=== PATIENT | male | born 1940 | race Caucasian/White ===

== ENCOUNTER 2022-09-03 15:12 | Outpatient (AMB) | payer MEDICARE, SELFPAY ==
--- NOTE | 2022-09-03 17:12 | HO.SPINEOV ---
Intake Intake Visit Reasons: follow up Assessment & Plan Assessment & Plan (1) Lumbar stenosis with neurogenic claudication: Code(s): M48.062 - Spinal stenosis, lumbar region with neurogenic claudication Plan Dear colleague, On 09/03/2022 I saw your patient Georgi Desouza the chief complaint of bilateral leg pain and left leg weakness. This patient is familiar to me. 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 He recovered well from his last surgery and was able to ambulate without assistance. 2-3 months ago he noticed a decline in his neurological function. Specifically, he complains of pain down both legs and dragging of his left leg. He has to ambulate with a walker otherwise he might fall due to his leg giving out. He has fallen several times. He denies numbness. He recently had a pacemaker implanted and he is on Xarelto. On exam: There is a grade 3/5 weakness of the iliopsoas on the left side. Normal reflexes. No pathological reflexes. Sensory exam is intact. He ambulates with a walker We reviewed an MRI of the lumbar spine also [facility] of 08/12/2022 which shows severe L3-4 central stenosis caused by a large left-sided bone spur that deforms and compresses the thecal sac and nerve root. Clinically there are no signs of myelopathy. I think the weakness and pain down his legs is related to the severe L3-4 stenosis. I offered him a left L3-4 decompression in day surgery. He will obtain cardiology clearance. He needs to stop his Xarelto 3 days prior to surgery. He will also need clearance by our anesthesia department. This surgery scheduled for November 04. The daughter is also going to bring old MRIs for me to compare to see if the abnormality to can be seen on previous MRIs. I spent 45 minutes in this consult for preparation, review of imaging and discussing plan of care. Yobani Toussaint MD, PhD Spine Fellowship Trained Neurosurgeon Director, [facility] Coding Level of Care Code Est Pt Level 5 (05096) Diagnoses Lumbar stenosis with neurogenic claudication M48.062
== END 2022-09-05 14:54 | disposition home or self-care (01) ==
PROVIDERS: PCP Internal Medicine; Visit Provider Neurological Surgery
DX: M48.062 Spinal stenosis, lumbar region with neurogenic claudication (principal)
CPT/HCPCS: 99215

== ENCOUNTER → 2022-09-03 15:12 | Outpatient (BNVA) | payer MEDICARE, SELFPAY | PROVIDERS: PCP Internal Medicine; Visit Provider Neurological Surgery | DX: M48.062 Spinal stenosis, lumbar region with neurogenic claudication (principal) | CPT/HCPCS: 99212 ==

== ENCOUNTER 2022-11-18 08:14 | Day surgery (SDC) | payer MEDICARE, SELFPAY ==
[2022-11-03 12:50] VITALS: BMI 27.6
--- NOTE | 2022-11-17 10:06 | P.CONAN_ITS ---
Documented by User: Claire Castaneda NP 11/17/22 10:15 HPI - Anesthesia Eval Consult details Narrative: 82yo M for Left L3-4 Decompression Cardiac optimized, ok to hold xarelto Medically cleared Pacer in situ Xarelto for afib Pt not seen in [facility] d/t long drive [facility] Active Problems Active Problems: All Active Problems (Updated 11/03/22 @ 11:43 by Shawna Blackmon RN) Lumbar stenosis with neurogenic claudication (Acute) Past Medical History Medical History Tubular adenoma of colon Transient weakness of lower extremity Pulmonary embolism Psoriasis Prolonged NJ interval Peripheral neuropathy IBS (irritable bowel syndrome) Impaired fasting glucose Hypercholesteremia H/O echocardiogram Epidermoid cyst of skin COVID Clot Cataract BPH (benign prostatic hyperplasia) Asteatosis cutis Adenomatous polyp Weakness generalized Spinal stenosis Myositis Myalgia Non-healing non-surgical wound Cerumen impaction Pacemaker Mobitz (type) I (Wenckebach's) atrioventricular block Lightheadedness Lumbar spondylosis Heart block atrioventricular Edema Anxiety Nocturia Anemia PAF (paroxysmal atrial fibrillation) Overactive bladder Surgical History Surgical History History of lumbar laminectomy for spinal cord decompression Hx of tonsillectomy Hx of cataract extraction History of excision of lamina of cervical vertebra for decompression of spinal cord S/P placement of cardiac pacemaker Social History Social History Are you a primary resident care aide to a significant other at home: No Do you presently have visiting nurse or other home services: No Patient Tobacco Use Status: Former Tobacco user Use of substances other than those prescribed or required for medical reasons: No Have you been hit, kicked, punched, or otherwise hurt by someone within the past year? If so, by whom?: No Are you DNR?: No Advance Directives: No Advance Directives Information Provided: Yes Advance Directives on File: No Recently lost weight without trying: No Eating poorly because of decreased appetite: No Nutrition Risks: No Nutritional Risk Meds Allergies Allergy/AdvReac Type Severity Reaction Status Date / Time No Known Allergies Allergy Verified 11/03/22 11:43 Home Medications Medication Instructions Recorded Confirmed Last Taken Type acetaminophen 500 mg tablet 1,000 mg PO Q6H PRN Pain 11/03/22 11/03/22 11/16/22 History oxybutynin chloride 5 mg tablet 5 mg PO BEDTIME 11/03/22 11/03/22 11/17/22 History rivaroxaban 10 mg tablet 10 mg PO DAILY 11/03/22 11/03/22 11/15/22 History Exam Exam Date and Time: November 17, 2022 1006 Height,Weight and Vital Signs: Height 6 ft 2 in Weight 97.522 kg Narrative Narrative: EKG 08/2022 SR @ 74 short NJ interval RSR' in V1 of V2, probably normal variant Borderline T abnormalities, inferior leads Minimal ST elevation, interior leads ECHO 2021 LV size and function normal EF 55-60% Mild MR No aortic stenosis Trival TR RV size and function nml Pacer interr 07/2022 A sensed, V sensed, nml device function, battery life estimated 13.4 years Documented by User: Luigi Easton MD 11/18/22 12:21 [facility] Past Medical History Medical History Tubular adenoma of colon Transient weakness of lower extremity Pulmonary embolism Psoriasis Prolonged NJ interval Peripheral neuropathy IBS (irritable bowel syndrome) Impaired fasting glucose Hypercholesteremia H/O echocardiogram Epidermoid cyst of skin COVID Clot Cataract BPH (benign prostatic hyperplasia) Asteatosis cutis Adenomatous polyp Weakness generalized Spinal stenosis Myositis Myalgia Non-healing non-surgical wound Cerumen impaction Pacemaker Mobitz (type) I (Wenckebach's) atrioventricular block Lightheadedness Lumbar spondylosis Heart block atrioventricular Edema Anxiety Nocturia Anemia PAF (paroxysmal atrial fibrillation) Overactive bladder Family History Family history of problems with anesthesia: No Surgical History Surgical History History of lumbar laminectomy for spinal cord decompression Hx of tonsillectomy Hx of cataract extraction History of excision of lamina of cervical vertebra for decompression of spinal cord S/P placement of cardiac pacemaker History of Problems with Anesthesia: No Social History Social History Are you a primary resident care aide to a significant other at home: No Do you presently have visiting nurse or other home services: No Patient Tobacco Use Status: Former Tobacco user Use of substances other than those prescribed or required for medical reasons: No Have you been hit, kicked, punched, or otherwise hurt by someone within the past year? If so, by whom?: No Are you DNR?: No Advance Directives: No Advance Directives Information Provided: Yes Advance Directives on File: No Recently lost weight without trying: No Eating poorly because of decreased appetite: No Nutrition Risks: No Nutritional Risk Meds Allergies Allergy/AdvReac Type Severity Reaction Status Date / Time No Known Allergies Allergy Verified 11/03/22 11:43 Home Medications Medication Instructions Recorded Confirmed Last Taken Type acetaminophen 500 mg tablet 1,000 mg PO Q6H PRN Pain 11/03/22 11/03/22 11/16/22 History oxybutynin chloride 5 mg tablet 5 mg PO BEDTIME 11/03/22 11/03/22 11/17/22 History rivaroxaban 10 mg tablet 10 mg PO DAILY 11/03/22 11/03/22 11/15/22 History Exam Airway Mallampati Class: II TM Dist: >3cm Neck ROM: Poor Loose/Missing/Broken Teeth: Yes Assessment and Plan Assessment Anesthesia Assessment: Anesthesia Plan Discussed Final Anesthetic Review Family History of Problems with Anesthesia: No History of Problems with Anesthesia: No NPO: Yes ASA Class: III Final Preanesthetic Review: No Changes in Pt Med Stat, Meds/Allgs Chart Reviewed, Consent Obtained/Reviewed and Anes Risks/Benef Reviewed Patient Risk: Intermediate Procedure Risk: Low Anesthetic Plan Anesthetic Plan: GA Disposition: Standard PACU
[2022-11-18] VITALS (9 sets, daily range): BP systolic 103–165; BP diastolic 55–83; PULSE 60–70; RESP 14–20; TEMP 36.1–37; O2SAT 92–99
--- NOTE | 2022-11-18 | ECG_ITS ---
Test Reason : st changes Blood Pressure : / mmHG Vent. Rate : 060 BPM Atrial Rate : 060 BPM P-R Int : 178 ms QRS Dur : 172 ms QT Int : 558 ms P-R-T Axes : 111 -25 124 degrees QTc Int : 558 ms AV dual-paced rhythm Abnormal ECG No previous ECGs available Referred By: Luigi Easton Electronically Signed By:YADIRA MAXWELL
--- NOTE | ~2022-11-18 | FL_ITS ---
EXAMINATION: XR FLUOROSCOPY WITH IMAGES CLINICAL INFORMATION: C3-L4 decompression. COMPARISON: None available. TECHNIQUE: Fluoroscopy Supervised By: Dr. Yobani Toussaint. Fluoroscopy Time: Less than 0.1 minute. Cumulative Dose: 4.0 mGy. DAP: 1.09 Gycm2. Images: 1. FINDINGS: Single lateral image demonstrate surgical marker posterior to the L3-L4 disc space. FL/FL guidance in OR IMPRESSION: Fluoroscopy guidance for lumbar spine surgery
--- NOTE | 2022-11-18 07:01 | MHC.SHP ---
Pre-Procedural Eval Section A Date of Service: 11/18/22 Section B Chief Complaint: Spinal stenosis, lumbar region with neurogenic cla Allergies: Allergies Allergy/AdvReac Type Severity Reaction Status Date / Time No Known Allergies Allergy Verified 11/03/22 11:43 Review of Systems Sugical H&P ROS: Negative: Constitution, Cardiovascular, Respiratory, Neurological, Psychiatric, Hem-Onc, Allergic/Immunologic, Gastrointestinal, Genitourinary, Musculoskeletal, Integumentary, Endocrine and Eyes/Ears/Nose/Throat Exam Surgical H&P Exam: Not Evaluated: HEENT, Not Evaluated: Heart, Not Evaluated: Lungs, Not Evaluated: Extremities, Not Evaluated: Abdomen, Not Evaluated: Skin and Not Evaluated: Neurological Plan Diagnosis/Plan: Unchanged I have reviewed the history and physical and performed a pertinent physical examination on my patient. No changes have occurred unless specified. Plan remains the same, left sided L3-4 laminectomy lumbar decompression Time Spent With Patient Time: Total time managing care of this patient today _10___ minutes.
[2022-11-18] MEDS: methocarbamoL 750 MG TABLET PO (08:30)
[2022-11-18] MEDS: Gabapentin 300 MG CAPSULE PO ×2 (08:30→19:56)
[2022-11-18] MEDS: Lactated Ringers 1,000 ML 100 ML IVCONT ×2 (08:49→19:55)
[2022-11-18 09:00] LABS: MANUAL DIFF FLAG NO
[2022-11-18 09:06] LABS: Basophils Absolute Auto 0.1 X10*3/uL (0.0-0.2); Basophils Percent Auto 1.1 % (0-2); Eosinophils Absolute Auto 0.1 X10*3/uL (0.0-0.4); Eosinophils Percent Auto 2.3 % (0-4); Hematocrit 37.3 % (42.0-52.0); Hemoglobin 12.4 g/dl (14.0-18.0); Imm Gran Abs Auto 0.02 X10*3/uL (0.00-0.03); Imm Gran Pct Auto 0.4 % (0.0-0.4); Lymphocytes Percent Auto 18.5 % (20-40); Mean Corpuscular HGB Conc 33.2 g/dl (31.0-36.0); Mean Corpuscular Hemoglobin 31.5 pg (27.0-33.0); Mean Corpuscular Volume 94.7 fL (80.0-98.0); Mean Platelet Volume 8.3 fL (9.4-12.4); Monocytes Absolute Auto 0.4 X10*3/uL (0.1-1.2); Monocytes Percent Auto 6.9 % (2-11); Neutrophils Percent Auto 70.8 % (45-73); Platelet Count 165 X10*3/uL (160-400); Red Blood Count 3.94 X10*6/uL (4.60-5.80); Red Cell Distribution Width 13.4 % (11.0-16.0); White Blood Count 5.6 X10*3/uL (4.8-10.8)
[2022-11-18 09:23] LABS: Anion Gap 12 (12-20); Blood Urea Nitrogen 15 mg/dL (9-16); Calcium 8.9 mg/dL (8.4-10.2); Carbon Dioxide 26 mmol/L (22-29); Chloride 103 mmol/L (96-108); Creatinine Clr Calc Pharmacy 76.9; Estimated Glomerular Filt Rate > 60; Glucose Fasting 100 mg/dL (60-99); Potassium 4.2 mmol/L (3.3-5.1); Sodium 137 mmol/L (135-145)
--- NOTE | 2022-11-18 12:05 | PM.DS ---
DS: Providers Provider Date of Service: 11/20/22 Primary care physician: Raphael Casas MD DS: Summary Time Spent with Patient Time attestation: Total time managing care of this patient today ____ minutes. Discharge coordination time: Less than 30 minutes Quality: Safe Use of Opioids Does Pt have an Active Cancer Diagnosis on the Problem List?: No Quality: Stroke Does the patient have a stroke diagnosis?: No Physical Exam Vital Signs: Vital Signs: Last Vital Signs Temp 97.8 F 11/18/22 08:44 Pulse 67 11/18/22 08:44 Resp 18 11/18/22 08:44 BP 147/83 H 11/18/22 08:44 Pulse Ox 97 11/18/22 08:44 O2 Del Method Room Air 11/18/22 08:44 BMI result Body Mass Index 27.6 DS: Data Data Completed and Pending Labs on day of discharge: Laboratory Results - last 24 hr 11/18/22 08:54 WBC 5.6 RBC 3.94 L Hgb 12.4 L Hct 37.3 L MCV 94.7 MCH 31.5 MCHC 33.2 RDW 13.4 Plt Count 165 MPV 8.3 L Immature Gran % (Auto) 0.4 Neut % (Auto) 70.8 Lymph % (Auto) 18.5 L [place] % (Auto) 6.9 Eos % (Auto) 2.3 Baso % (Auto) 1.1 Lymph # (Auto) 1.0 L [place] # (Auto) 0.4 Eos # (Auto) 0.1 Baso # (Auto) 0.1 Abs Immat Gran (auto) 0.02 Absolute Neuts (auto) 4.0 Absolute Nucleated RBC 0.000 Nucleated RBC % (auto) 0.0 Sodium 137 Potassium 4.2 Chloride 103 Carbon Dioxide 26 Anion Gap 12 BUN 15 Creatinine 0.89 Estim Creat Clear Calc 76.9 Estimated GFR > 60 Fasting Glucose 100 H Calcium 8.9 Blood Type AB Negative Antibody Screen NEGATIVE Additional Comments Additional comments: Mr. Desouza is an 82-year-old male who is s/p L3-4 laminectomy/lumbar decompression performed on 11/18/2022. He had a somewhat complicated surgical course as a result of a durotomy during surgery, but after observing strict head of bed restrictions he is doing well. He reports no headaches or dizziness is able to sit up, eat, and void (did need some assistance with straight catheter but had no retention, likely secondary to HOB restrictions). I reached out to PT today (11/20/22) for evaluation to be DC'd. He was seen at bedside by Dr. Toussaint & meets medical criteria to be discharged home. Please see the comprehensive discharge instructions attached to this document for further instructions regarding postoperative care. Face to face will be completed for VNA services to be set up by nursing / case management. He will need to make an appointment with our office for follow-up in 10 days to have his posterior suture removed. Discharge Plan Discharge Patient Disposition: Home, Self-Care Referrals: Rpahael Casas MD [Primary Care Provider] - 1 Week Discharge Medications: New oxycodone 5 mg tablet 5 mg PO Q6H PRN (Reason: severe pain (scale score 7-10)) Qty: 20 0RF Rx Instructions: Partial Fill upon patient request. Continued acetaminophen 500 mg Tablet 1,000 mg PO Q6H PRN (Reason: Pain) oxybutynin chloride 5 mg Tablet 5 mg PO BEDTIME Held rivaroxaban 10 mg Tablet 10 mg PO DAILY Hold Instructions: Resume on 11/21/22. Rx Instructions: for 35 days No Action diazepam 5 mg tablet 5 mg PO BEDTIME cyclobenzaprine 5 mg tablet 5 mg PO TID PRN (Reason: MUSCLE SPASMS) Discharge Orders: Discharge Order (Routine); Ordered 11/20/22 Ordered By: Fabian Zuñiga Diet: Advance to usual diet Activity on Discharge: As tolerated Activity Restrictions/Additional Instructions: After your spinal surgery we ask you to observe the following restrictions/guidelines: Activity: It is normal to feel some discomfort as you increase your activity, but that will improve with time. We ask you avoid heavy lifting or acitivities that cause pain. As a general rule, 8lbs is a safe limit for lifting right after surgery. Walk as much as you feel comfortable but not to exhaustion. You will feel extra tired the first few days after surgery. Stay well hydrated. It is OK to walk up and down stairs You may return to driving when you are off narcotics (such as vicodin, oxycodone, dilaudid, etc), and you are back to normal functional capacity. If you have any concerns please check with office before driving. Return to work is specific to each patient and each surgery, so please speak with your doctor/PA at first follow up. Please bring paperwork such as FMLA at that time if you need it filled out. Medications: We will give you a short supply of narcotics after surgery (usually one weeks worth). If you need more please call the office but do not use more than prescribed. You will need to give our office 48 hours notice if you need narcotics refilled and we do not fill narcotics on weekends or evenings. If you are on a narcotic, it is a good idea to take a stool softener such as colace or senna to avoid constipation If you take blood thinner such as aspirin, Plavix, Coumadin, Effient, Eliquis etc for conditions such as Afib, DVT, Pulmonary embolus, coronary disease, stents etc please speak with your surgeon about specific details as to when you can resume these medications. You can resume NSAIDs on post op day 1 (eg: Motrin, Naproxen, etc). Follow up: Please call the office, , after surgery to arrange a 3 week follow up for wound check. Wound Care: You may remove your dressing on the first day after surgery. You may leave open to air. Please do not remove the steri strips underneath. they will fall off on their own in one week. IT IS NORMAL FOR THE WOUND TO OOZE OR BE BLOODY FOR A FEW DAYS AFTER SURGERY. IF THIS HAPPENS JUST PLACE NEW DRESSING OVER IT TO AVOID STAINING CLOTHES. You may shower on post op day # 1 We ask that you do not let the water soak the wound. If it does get wet, just towel dry lightly. Please do not scrub your incision or place any type of chemical/ointment on the wound. No tub baths, pools or jacuzzis for one month. If you have any leaking or redness from your wound, or fevers, please call the office. YOU HAD A SMALL SPINAL FLUID LEAK SEEN AT THE TIME OF SURGERY. IT IS NORMAL TO EXPERIENCE MILD HEADACHES WHEN THIS HAPPENS. IF YOU EXPERIENCE SEVERE HEADACHES PLEASE CALL OUR OFFICE TO UPDATE US. USUALLY IT WILL GO AWAY IF YOU STAY FLAT IN BED FOR A DAY. IF YOU EXPERIENCE ANY LEAKING FROM YOUR WOUND WHICH LOOKS LIKE CLEAR WATER, WE ASK THAT YOU CALL US RIGHT AWAY. [phone]
--- NOTE | 2022-11-18 13:50 | PHA.MEDREC ---
Pharmacy Consult ? Medication Reconciliation Pharmacy has completed the medication reconciliation. pharmacy has reviewed the med rec done by nursing
--- NOTE | 2022-11-18 16:05 | HO.NEURO.PN ---
Neurosurgery Operative Note Date of Service: 11/19/22 Narrative: POD: 1 Procedure: L3-4 Laminectomy / lumbar decompression Mr. Desouza reports that he is feeling well, has been tolerating diet, and has been voiding with the use of a Ring catheter. He has remained flat in bed with strict HOB restrictions since yesterday. He reports no headache dizziness or nausea. He states that he feels the symptoms have improved significantly since his surgery, despite complications including a durotomy leading to his head of bed restrictions that we are observing today. He reports good pain control and states he has no current pain or weakness. Afebrile, vital signs stable. Full strength 5/5 UE / LE. Back dressings have some staining without signs of hematoma. No active sanguineous drainage. Area is dry. Plan: Nursing staff were advised to have the patient sit up at 30 degrees for roughly 1/2 hour, then have him attempt to get out of bed to ambulate with assistance of his walker. Nursing staff were also instructed to remove Ring catheter. We have been in communication with PT who will also be evaluating him once he is able to get up out of bed. He continues to do well and tolerates ambulation he will be medically cleared to discharge home. He has oxycodone that has been sent to his pharmacy, and will need to make an appointment with our office to come back in 10 days to have his running suture removed from his posterior incision site.
--- NOTE | 2022-11-18 16:24 | P.OP_ITS ---
Operative Note Operative Note Date of Service: 11/18/22 Narrative: Preoperative Diagnosis: L3-4 spinal stenosis/lateral recess stenosis/neural foraminal stenosis Operation: L3-4 Laminotomy, Partial facetectomy and foraminotomy with use of microscope Consent Informed Consent was obtained for this operation. I have explained the nature, purpose and benefits of the operation. I have discussed the risks and benefit of the operation including possible complications or adverse events with patient/family. Alternative(s) were discussed with the patient with their relative benefits and risks as well as the consequences of not accepting the operation were included in obtaining consent. Surgeon: SOLEDAD CLAY MD, PHD Procedure Assisted By: Adarsh Izaguirre Pac] Description of Procedure This 82-year-old patient previously underwent a multilevel lumbar decompression in another institution many years ago. He presents with leg weakness and pain. An MRI CT scan shows residual L3-4 spinal stenosis predominantly on the left side. The patient was offered a decompression. The procedure complications were explained. The patient was consented. The patient was brought to the operating room and endotracheally intubated. The patient was turned in prone position on the Gianni frame. Prep and drape was done followed by timeout. The previous mid lumbar incision was partially opened followed by release of the paravertebral muscle on the left side to expose the L3-4 lamina and facet joints. An intraoperative x-ray was obtained to confirm the correct level. The microscope was brought in. Interestingly, the previous laminotomy was completely covered with newly formed bone. The high-speed drill was used to do a L3-4 laminotomy. I created a plane between the residual bone and dura but it became clear and that dura was so attached and thin that a durotomy was unavoidable. Spinal fluid leak occurred. In fact, the the dura was of such poor quality that many of the neural structures became exposed. I was able to perform the medial facetectomy but limited the procedure cause of the intraoperative scar tissue. The dural defect was covered with DuraGen and tissue dura.The microscope was removed. Hemostasis was done. The physician field administrative assistant close the incision in 3 l nath. An OpSite with Tegaderm was used to cover the incision. All sponge needle counts were correct. Patient was extubated and transported in stable is to recovery room. Anesthesia: General Estimated Blood Loss (ml): Minimal Complications: Durotomy Duration of Surgery: Under 60 Minutes Postoperative Plan: Discharge to home
[2022-11-18] MEDS: ceFAZolin Sodium/Dextrose,Iso 2 GM/50 ML PIGGYBACK IV ×2 (18:05→23:49)
[2022-11-18] MEDS: Docusate Sodium 100 MG CAPSULE PO (19:54)
[2022-11-18] MEDS: Acetaminophen 325 MG TABLET 975 MG PO (19:54)
[2022-11-18] MEDS: Ketorolac Tromethamine 15 MG/ML VIAL IVPUSH (19:54)
[2022-11-19] VITALS (8 sets, daily range): BP systolic 103–144; BP diastolic 53–70; PULSE 66–86; RESP 12–20; TEMP 36.1–37.7; O2SAT 95–98
[2022-11-19] MEDS: Ketorolac Tromethamine 15 MG/ML VIAL IVPUSH ×2 (01:37→07:57)
[2022-11-19] MEDS: Acetaminophen 325 MG TABLET 975 MG PO ×4 (01:37→19:30)
[2022-11-19] MEDS: Lactated Ringers 1,000 ML 100 ML IVCONT (05:15)
[2022-11-19] MEDS: ceFAZolin Sodium/Dextrose,Iso 2 GM/50 ML PIGGYBACK IV (05:17)
[2022-11-19] MEDS: Docusate Sodium 100 MG CAPSULE PO ×2 (08:04→21:14)
[2022-11-19] MEDS: Gabapentin 300 MG CAPSULE PO (08:23)
--- NOTE | 2022-11-19 09:50 | HO.POSTANES ---
Post Anesthesia Evaluation Post Anesthesia Evaluation Date of Service: 11/19/22 Vital Signs: Vital Signs Temp Pulse Resp BP Pulse Ox O2 Del Method 11/19/22 07:11 98.5 F 86 18 120/58 L 96 Room Air 11/19/22 03:26 97.9 F 80 18 144/70 H 97 Room Air Anesthesia: General Endotracheal-GETA Mental Status: Awake Pain Control: Satisfactory Nausea/Vomiting: None Hydration: Adequate Anesthesia-Related Issues: No Anes. Related Issues
--- NOTE | 2022-11-19 11:15 | MHC.CM.PN ---
pt lives with his wifeand fernandolexus he is independent has no servixes will self arrange transportn home
[2022-11-19] MEDS: Cyclobenzaprine HCl 5 MG TABLET PO ×2 (14:09→21:16)
[2022-11-19] MEDS: diazePAM 5 MG TABLET PO (21:14)
[2022-11-20] MEDS: Acetaminophen 325 MG TABLET 975 MG PO (00:59)
[2022-11-20 06:58] VITALS: BP 155/70; PULSE 84; RESP 20; TEMP 36.8; O2SAT 96
--- NOTE | 2022-11-20 07:04 | HO.NEUROPN_ITS ---
Neurosurgery Operative Note Date of Service: 11/20/22 Narrative: Georgi was unable to get out of bed to ambulate yesterday. After sitting up at the edge of his bed for a period of time he had some serosanguineous drainage from his posterior incision site, and felt slightly lightheaded. 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 Toussaint. He remained neurologically intact (CN II-XII WNL). Dr. Toussaint decided that it would be best if Georgi spent another night in the hospital to recover from his durotomy. We will re- evaluate him this morning for an anticipated discharge. Nursing staff reported no acute overnight events, but did state that he needed to be straight catheterized x 1.
--- NOTE | 2022-11-20 07:42 | HO.NEURO.PN ---
Neurosurgery Operative Note Date of Service: 11/20/22 Narrative: Evaluated patient again this morning at bedside with Dr. Toussaint. Patient was sleeping in bed with HOB at 30 degrees. In NAD. Posterior incision site was clean, dry with some staining but without drainage. Patient reports no headaches, lightheadedness, or dizziness. Reached out to PT for evaluation. Discharge documentation will be completed.
--- NOTE | 2022-11-20 07:49 | W.MHC.F2F ---
Service Date Service Date: 11/20/22 Encounter Date of encounter: 11/20/22 Reasons for Services Signs and symptoms assessed: s/p L3-4 laminotomy with incidental durotomy Reason for long term: wound care, postoperative assessment and/or care, medication management, medication treatment and other Reason for physical therapy: home safety and mobility, therapeutic exercises, gait/transfer training, ADL training and energy conservation Homebound: Leaving the home is medically contraindicated at this time without the asist of a device and/or another person due th the listed conditions above and below. Reason homebound: unsteady gait / fall risk, pain with ambulation, pain with transfers, weakness related to hospital stay and other Certification: Based on the above findings, I certify that this patient is confined to the home and needs intermittent long term care, physical therapy and/or speech therapy, or continues to need occupational therapy. The patient is under my care, and I have initiated the establishment of the plan of care. The patient will be followed by a physician who will periodically review the plan of care. Time Spent With Patient Time: Total time managing care of this patient today __15_ minutes.
[2022-11-20 08:52] VITALS: BP 155/70; PULSE 84; O2SAT 96
--- NOTE | 2022-11-20 09:20 | MHC.CM.PN ---
Addendum entered by Leyla New 11/20/22 09:38: [facility] ACCEPTING DCS AND F2F SENT Original Note: CM MET WITH PT AND DAUGHTER TO DISCUSS DC PLAN CM DISCUSSED PTS PT EVAL AND CONCERNS ABOUT HIS RETURNING HOME AT DC PTS DAUGHTER REPORTS THIS IS BASELINE FOR HIM PT REPORTS HE FELT STEADY USUAL WHEN AMBULATING TO THE CHAIR PTS DAUGHTER STATES HE IS NEVER LEFT ALONE AND THEY HAVE MODIFIED THE HOME FOR HIS SAFETY SHE SAYS THEY HAVE INSTALLED RAILS NEAR EVERY STAIR AND IN THE BATHROOM HE ALSO HAS MULTIPLE WALKERS AROUND THE HOME AND OUTDOORS PTS DAUGHTER REPORTS THE PT HAS HAD A SIMILAR PROCEDURE IN THE PAST AND WENT HOME WITH [facility] SHE SAYS THEY HAD [facility] OUT OF [place], AND WOULD LIKE THE SAME ONE THIS TIME ALTHOUGH ARE AGREEABLE TO ANY IF THEY DO NOT ACCEPT PTS DAUGHTER IS AT BEDSIDE AND WILL TRANSPORT ONCE PTS SERVICES ARE IN PLACE AND DC COMPLETE REFERRAL FOR ACUTE REHAB CANCELED [facility] REFERRAL OUT
[2022-11-20 09:51] VITALS: BP 155/70; PULSE 84; O2SAT 96
[2022-11-20] MEDS: Cyclobenzaprine HCl 5 MG TABLET PO (09:57)
== END 2022-11-20 11:50 | disposition home or self-care (01) ==
LOC: HO.SSS 12:05 → HO.S3 15:00
PROVIDERS: Nurse Practitioner; Physician Assistant; PCP Internal Medicine; Visit Provider Neurological Surgery
PROC: (CPT 63047; principal; 2022-11-18 10:40)
DX: M48.062 Spinal stenosis, lumbar region with neurogenic claudication (principal); G97.41 Accidental puncture or laceration of dura during a procedure; M79.10 Myalgia, unspecified site; I48.0 Paroxysmal atrial fibrillation; Z95.0 Presence of cardiac pacemaker; D64.9 Anemia, unspecified; R73.01 Impaired fasting glucose; F41.1 Generalized anxiety disorder; Z79.01 Long term (current) use of anticoagulants; Z79.899 Other long term (current) drug therapy
CPT/HCPCS: 63047; 36415; 80048; 85025; 85027; 86850; 86900; 86901; 93005; 97116; 97162; C1758; J0131; J0690; J1885; J2371; J2405; J3010; Q4100

== ENCOUNTER → 2022-11-18 08:14 | Outpatient (BNV) | payer MEDICARE, SELFPAY | PROVIDERS: PCP Internal Medicine; Visit Provider Neurological Surgery | DX: Z48.89 Encounter for other specified surgical aftercare (principal); M48.062 Spinal stenosis, lumbar region with neurogenic claudication | CPT/HCPCS: 63047; 99024; 99499; G0180 ==